=== PATIENT | female | born 1995 | race American Indian/Alaskan Native ===

== ENCOUNTER 2016-08-28 10:17 | Emergency (ER) | payer SELFPAY ==
[2016-08-28] MEDS ORDERED: NORCO 5/325 PO ONE (14:32)
[2016-08-28] MEDS ORDERED: XYLOCAINE 1% MPF 5 mL INFILTRATI ONE (14:32)
[2016-08-28] MEDS ORDERED: NACL 0.9% IR ONE (14:32)
[2016-08-28] MEDS ORDERED: BOOSTRIX IM ONE (14:32)
--- NOTE | 2016-08-28 14:42 | Emergency Department Report ---
- General Chief Complaint: Wound/Laceration Stated Complaint: LACERATION ON CHIN Time Seen by Provider: 08/28/16 14:02 Source: patient, family Mode of arrival: Ambulatory Limitations: No Limitations - History of Present Illness Initial Comments: Patient here complaining that she was running and fell on concrete prior to arriving to the emergency room. She says she has a laceration to her chin and some bruises to other areas of her body to include her upper chest, left side both hands and left foot area. She denies any loss of consciousness. Denies any headache or head injury. She said fall was accidental. Pain is 6 out of 10 to chin. She did not take any [id number] medication. -: This afternoon Location: face, chest (to left upper chest) Extremity Location: Left: Hand (Palm a abrasion), Hip (abrasion), Foot ( abrasion), Right: Hand Place: outdoors Patient Tetanus UTD: No Context: accidental, fall Associated Symptoms: pain. denies: loss of feeling/numbness, suspect foreign body present, unable to move injured part, weakness followed by dizziness, nausea/vomiting, fever Treatments Prior to Arrival: bandage - Related Data Previous Rx's Medication Instructions Recorded Last Taken Type Cephalexin [Keflex Oral Liq 250 10 ml PO Q8HR #150 ml 08/28/16 Unknown Rx mg/5 ML] Ibuprofen Oral Liqd [Motrin] 20 ml PO TID PRN #300 ml 08/28/16 Unknown Rx Allergies Allergy/AdvReac Type Severity Reaction Status Date / Time No Known Allergies Allergy Unverified 08/28/16 10:34 ED Review of Systems ROS: Stated complaint: LACERATION ON CHIN Other details as noted in HPI Comment: All other systems reviewed and negative Constitutional: denies: chills, fever Respiratory: no symptoms reported Cardiovascular: denies: chest pain, palpitations, edema, syncope Musculoskeletal: arthralgia Skin: other (abrasion and laceration) Neurological: denies: headache, weakness, numbness, paresthesias, confusion, abnormal gait, vertigo ED Past Medical Hx - Past Medical History Previous Medical History?: Yes - Surgical History Past Surgical History?: No - Family History Family history: no significant - Social History Smoking Status: Never Smoker Substance Use Type: None - Medications Home Medications: Home Medications Medication Instructions Recorded Confirmed Last Taken Type Cephalexin [Keflex Oral Liq 250 10 ml PO Q8HR #150 ml 08/28/16 Unknown Rx mg/5 ML] Ibuprofen Oral Liqd [Motrin] 20 ml PO TID PRN #300 ml 08/28/16 Unknown Rx ED Physical Exam - General Limitations: No Limitations General appearance: alert, in no apparent distress - Head Head exam: Present: atraumatic, normocephalic, normal inspection - Eye Eye exam: Present: normal appearance, PERRL, EOMI. Absent: periorbital swelling , periorbital tenderness Pupils: Present: normal accommodation - Neck Neck exam: Present: normal inspection, full ROM. Absent: tenderness, meningismus, lymphadenopathy - Expanded Neck Exam Expanded Neck exam: Absent: tenderness, midline deformity, anterior neck swelling, tracheal deviation - Respiratory Respiratory exam: Present: normal lung sounds bilaterally. Absent: respiratory distress, chest wall tenderness - Cardiovascular Cardiovascular Exam: Present: normal rhythm, tachycardia, normal heart sounds - GI/Abdominal GI/Abdominal exam: Present: soft, normal bowel sounds. Absent: distended, tenderness, guarding, rebound, rigid - Extremities Exam Extremities exam: Present: normal inspection, full ROM, normal capillary refill. Absent: tenderness, pedal edema, joint swelling, calf tenderness - Back Exam Back exam: Present: normal inspection, full ROM. Absent: tenderness, CVA tenderness (R), CVA tenderness (L), muscle spasm, paraspinal tenderness, vertebral tenderness, rash noted - Neurological Exam Neurological exam: Present: alert, oriented X3, normal gait, reflexes normal. Absent: motor sensory deficit - Psychiatric Psychiatric exam: Present: normal affect, normal mood - Skin Skin exam: Present: abrasion (right and left hand and palmar side. Left anterior chest above clavicle, left hip area.), other (chin laceration, deep) - Expanded Skin Exam Expanded Type of lesion: Present: laceration, abrasion Distribution of rash: face (laceration), chest (abrasion), RUE (abrasion), LUE ( per ), LLE (Abrasions) Description of rash: Present: size (3 cm laceration), tenderness ED Course Vital Signs 08/28/16 08/28/16 10:23 14:26 Temperature 98.6 F 98.8 F Pulse Rate 108 H 92 H Respiratory 16 15 Rate Blood Pressure 132/83 Blood Pressure 122/79 [Right] O2 Sat by Pulse 100 100 Oximetry - Reevaluation(s) Reevaluation #1: 08/28/16 16:38 Patient given [place] 5/325 mg 2 tablets in emergency room to manage pain. She was also given Boostrix vaccine. - Laceration /Wound Repair Medial Face Wound Location: face (medial chin) Wound Length (cm): 3 Wound's Depth, Shape: into muscle, linear Wound Explored: no foreign body removed Irrigated w/ Saline (ccs): 200 Betadine Prep?: Yes Anesthesia: 1% Lidocaine Volume Anesthetic (ccs): 5 Wound Debrided: moderate Wound Repaired With: sutures Suture Size/Type: 3:0 (Ethilon) Number of Sutures: 9 Layer Closure?: Yes Deep Layer Suture Size/Type: 5:0 (Vicryl) Number Deep Layer Sutures: 4 Sterile Dressing Applied?: Yes ED Medical Decision Making - Medical Decision Making ED course: Patient with laceration to chin. See procedure note for details on laceration repair. Patient also with multiple abrasions which was cleansed with Betadine and saline and Neosporin ointment placed followed by Band-Aid dressing. Patient given [place] 5/325 2 tablets emergency room to manage pain and also Boostrix. Patient discharged home with family to return to the emergency room and 5 days for removal of stitches. Discharged home with prescription for Keflex and Motrin Critical care attestation.: If time is entered above; I have spent that time in minutes in the direct care of this critically ill patient, excluding procedure time. ED Disposition Clinical Impression: Multiple abrasions, Arthralgia of multiple sites Laceration of face Qualifiers: Encounter type: initial encounter Qualified Code(s): S01.81XA - Laceration without foreign body of other part of head, initial encounter Fall, accidental Qualifiers: Encounter type: initial encounter Qualified Code(s): W19.XXXA - Unspecified fall, initial encounter Disposition: DISCHARGED TO HOME OR SELFCARE Is pt being admited?: No Does the pt Need Aspirin: No Condition: Stable Instructions: Abrasion (ED), Suture Care (ED), Laceration (ED), Arthralgia (ED) Additional Instructions: He is return to the emergency room or your primary care physician office in 5 days for removal of stitches. Please take antibiotic as prescribed. Is keep affected areas clean and dry. Prescriptions: Cephalexin [Keflex Oral Liq 250 mg/5 ML] 10 ml PO Q8HR #150 ml Ibuprofen Oral Liqd [Motrin] 20 ml PO TID PRN #300 ml PRN Reason: Pain Referrals: PRIMARY CAREMD [Primary Care Provider] - 09/02/16 ESTEFANY WASHINGTON MD [Staff Physician] - 09/02/16 Forms: Accompanied Note, Work/School Release Form(ED)
[2016-08-28] MEDS ORDERED: TRIPLE ANTIBIOTIC TP ONE ×2 (15:40→15:41)
[2016-08-28 17:01] VITALS: BP 132/74
== END 2016-08-28 16:59 | disposition home or self-care (01) ==
LOC: ED 10:17
DX: S01.81XA Laceration without foreign body of other part of head, initial encounter (principal); S60.512A Abrasion of left hand, initial encounter; S70.219A Abrasion, unspecified hip, initial encounter; S90.812A Abrasion, left foot, initial encounter; M25.50 Pain in unspecified joint; W18.39XA Other fall on same level, initial encounter; Y93.02 Activity, running; Y99.9 Unspecified external cause status; Y92.89 Other specified places as the place of occurrence of the external cause
CPT/HCPCS: 90471; 90715; A6250